=== PATIENT | male | born 1995 | race African-American/Black ===

== ENCOUNTER 2020-08-05 04:12 | Inpatient (IN) | payer OTHER ==
[~2020-08-05] VITALS: Ht 188 cm; Wt 110.7 kg
[2020-08-05 04:17] VITALS: BP 173/115
[2020-08-05 05:00] LABS: ABSOLUTE NEUTROPHILS 4.9 thou/uL (1.4-8.2); BASOPHILS 1.1 % (0.0-2.0); EOSINOPHILS 1.1 % (0.0-3.0); HEMATOCRIT 36.9 % (42.0-52.0); HEMOGLOBIN 12.7 gm/dL (14.0-18.0); LYMPHOCYTES 35.9 % (24.0-44.0); MCH 31.3 pg (26.0-34.0); MCHC 34.3 g/dL (28.0-37.0); MCV 91.3 fL (80.0-100.0); MONOCYTES 5.7 % (1.0-8.0); PLATELET COUNT 410 thou/uL (150-400); POLYS 56.2 % (36.0-66.0); RBC 4.04 mil/uL (4.50-6.00); RDW 15.3 % (10.5-14.5); WBC 8.7 thou/uL (4.0-11.0)
[2020-08-05 05:21] LABS: CREATININE 1.1 mg/dL (0.7-1.3); POTASSIUM 3.2 mmol/L (3.5-5.1)
[2020-08-05 05:23] LABS: ALBUMIN 3.5 g/dL (3.4-5.0); TOTAL BILIRUBIN 3.2 mg/dL (0.2-1.0); TOTAL PROTEIN 7.3 g/dL (6.4-8.2)
[2020-08-05 11:23] VITALS: BP 158/104
[2020-08-05 12:15] VITALS: BP 180/103
[2020-08-05] MEDS ORDERED: VENTOLIN HFA 1818 GM INH (12:34)
[2020-08-05] MEDS ORDERED: PROTONIX40 M2 PO (12:34)
[2020-08-05] MEDS ORDERED: OXYCODONE-APAP1 EAC4 PO (12:35)
--- NOTE | 2020-08-05 13:18 | NUR ---
PT ARRIVED TO UNIT AT 1215. PT A&OX4. PT STATES HIS MOTHER TOOK HIS SHOES HOME, BUT SHE WOULD BE BACK LATER TO VISIT. PT STATES HIS PAIN IS "29/10" SEIZURES PRECAUTIONS IN PLACE, PT REPORTS 'NO SEIZURES EVERY IN MY LIFE'. BP IS ELEVATED, THIS RN CALLED PHARMACY FOR THIAMINE INFUSION. 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 PT STATES MOST OF HIS DRINKING IS DUE TO STRESS, FEELS A PEER-PRESSURE TYPE OF SITUATION AT HOME, STATES HIS MOM DRINKS OFTEN AT HOME. PT WOULD BE INTERESTED IN AN OUTPATIENT PROGRAM FOR ALCOHOL AT DISCHARGE.
[2020-08-05 15:22] VITALS: BP 187/109
[2020-08-05 19:18] VITALS: BP 187/103
--- NOTE | 2020-08-06 00:13 | NUR ---
times two up to the restroom, forgets to use the urinal. complains that the ambien is not effective for sleeping. explained that his alcohol withdrawl is not allowing him to rest properly. plan to maintain use of the benzo (lorazepam) to control agitation and restlessness.
--- NOTE | 2020-08-06 03:40 | NUR ---
resting quietly after taking lorazepam and pain alleviating medication. his pain level is holding at around a 7/10. he will not stay in bed to use the urinal. he gets out of bed with alarm set and will not call first. reexplained the need for safety and his potential for siezure, given his ETOH withdrawl state. careplan reviewed.
[2020-08-06 03:58] VITALS: BP 167/110
[2020-08-06 05:43] LABS: CALCIUM 9.2 mg/dL (8.5-10.1); CREATININE 0.7 mg/dL (0.7-1.3)
[2020-08-06 05:48] LABS: POTASSIUM 4.1 mmol/L (3.5-5.1)
[2020-08-06 07:34] VITALS: BP 161/104
--- NOTE | 2020-08-06 11:26 | NUR ---
RD consult for diet instruction. Pt newly admitted with pancreatitis, etoh/substance abuse. Being held npo for now, lipase 2050. Psych consulted for anxiety/etoh. On vitamin, thiamine, ivf. Will follow up again on Wednesday 08/09 to see if diet advanced, and complete nutrition eval with education if appropriate.
--- NOTE | 2020-08-06 13:39 | NUR ---
ASSESSMENT: CM REVIEWED CHART AND MET WITH THE PATIENT AT THE BEDSIDE. PT IS ALERT AND ORIENTED X4. PT WAS ADMITTED DUE TO PANREATITIS AND HX OF ALCOHOL ABUSE. PT REPORTS THAT HE LIVES IN A HOUSE WITH HIS MOTHER AND GRANDMOTHER. PT REPORTS BEING FULLY INDEPENDENT WITH ADLS AND AMBULATION. CM MET WITH PATIENT AND DISCUSSED ROLES. CM OFFERED PATIENT RESOURCES ON ALCOHOL ABUSE AND PROVIDED HIM WITH A LIST OF AA MEETINGS IN THE AREA, [facility] OUTPATIENT PROGRAM, AND [employer]. PT REPORTS HIS PCP IS THROUGH [facility]. CM DISCUSSED ROLE. PT DOES NOT ANTICIPATE HAVING ANY FURTHER NEEDS FROM CM. PT REMAINS ON IV FLUIDS AND ALCOHOL WITHDRAWL PROTOCOL.
[2020-08-06 16:04] VITALS: BP 147/94
--- NOTE | 2020-08-06 18:42 | NUR ---
PT NOW ON Q8H CIWA SCALE AFTER SCORING LOW FOR 3 CONSECUTIVE ASSESSMENTS. PT STANDBY ASSIST WHILE AMBULATING, NO CONCERNS AT THIS TIME. LABS ORDERD FOR AM DRAW.
[2020-08-06 20:21] VITALS: BP 116/95
[2020-08-06 20:22] VITALS: BP 116/95
--- NOTE | 2020-08-07 03:01 | NUR ---
PT IS A/O X4 AND IS UP AD CASEY IN ROOM. ROOM AIR. SR ON THE MONITOR. VSS. AFEBRILE. C/O ABDOMINAL PAIN. PRN PAIN MEDICATION GIVEN DIRECTED. CALL LIGHT IS WITHIN REACH
[2020-08-07 05:37] VITALS: BP 148/98
--- NOTE | 2020-08-07 18:28 | NUR ---
ASSUMED PT CARE A DAY SHIFT CHANGE. PT WAS VERY TIRED AT BEGINNING OF SHIFT, WITH NO COMPLAINTS. US PERFORMED WITHOUT ISSUE. AFTER DR CONLEY VISITED WITH PT, PT BECAME VERY AGITATED AND UPSET, STATING HE FELT SHE WASN'T VERY COMPASSIONATE ABOUT HIS SITUATION. THIS RN PROVIDED CALM ENVIRONMENT FOR PT TO VENT HIS FRUSTRATIONS. PT STATED "I AM JUST GOING TO LEAVE" THIS RN INFORMED PT HE HAS PATIENT RIGHTS, BUT THE HOSPITAL STAFF INCLUDING PHYSICIAN, IS OPERATING TO HELP HIM TO REDUCE PAIN AND HAVE IMPROVED LABS. PT VERBALIZED HE NEEDS TO HAVE DOCTOR NOTE FOR HIS WORK TO SAY HE HAS BEEN IN THE HOSPITAL AND IS WAS OK AT THAT TIME TO STAY IN THE HOSPITAL PER DR CONLEY RECOMMENDATION. PT HAD ORIGINAL IV INFILTRATE, FLOOR NURSE UNABLE TO FIND APPROPRIATE ACCESS, IV TEAM CALLED WITH SUCCESSFUL IV PLACED IN CLY[place]. WHEN THIS RN WENT INTO PT ROOM, HE HAD INCREASED AGITAITON, STATING "THERE WERE NEEDLES ALL OVER THE PLACE" THIS RN UNABLE TO FIND NEEDLES OR REMINENTS OF IV START DESPITE COMPLETE BED LINEN CHANGE. THIS RN WIPED DOWN PT BED AND TABLE WITH HOSPITAL PROVIDED CLEANSING WIPES. THIS RN ALSO REPLACED PT CLEARS (HE DID NOT WANT THE ITEMS PROVIDED ON TRAY FROM DIETARY) WITH VARIOUS CLEARS FROM [facility]. THIS RN EXPLAINED PT IS TO TRY CLEARS AND IF HE HAS N/V TO REPORT. PT STATES HE WILL TRY BUT "AM PROBABLY GOING TO LEAVE SOON".
[2020-08-07 19:46] VITALS: BP 155/112
[2020-08-08 04:23] VITALS: BP 173/101
--- NOTE | 2020-08-08 06:20 | NUR ---
PAIN MANAGEMENT WAS POC ALONG WITH IVF GTT. PT REQUESTED ALBUTEROL NEB FROM HOME MEDS RESTARTED. RT GAVE TX AT 0545. PT UP AD CASEY. NO COMPLAINTS OF NAUSEA. HOURLY ROUNDING AND CALL LIGHT WITHIN REACH.
[2020-08-08 07:50] VITALS: BP 173/112
[2020-08-08 10:09] VITALS: BP 173/112
[2020-08-08] MEDS ORDERED: PROTONIX40 M2 PO (10:26)
[2020-08-08] MEDS ORDERED: CLONIDINE HCL0.3 M3 PO (10:27)
[2020-08-08] MEDS ORDERED: OXYBUTYNIN 5 MG5 M2 PO (10:27)
[2020-08-08] MEDS ORDERED: OXYCODONE HCL 55 MG PO (10:32)
[2020-08-08] MEDS ORDERED: ZOFRAN4 MG PO (10:34)
--- NOTE | 2020-08-08 12:03 | NUR ---
PT DISHCARGED AT THIS TIME HOME. HE IS ALERT ORIENTED X4. HE WAS INSTRUCTED ON DIETING AND ALSO ON NEED TO MONITOR ABDOMINAL PAIN.
== END 2020-08-08 12:09 | disposition home or self-care (01) | DRG 439 ==
LOC: ER 04:12 → EROBS 07:57 → 3W 07:57 → 4W 11:38 → 3W 12:18
PROVIDERS: Emergency Medicine; ADMIT Internal Medicine; ATTEND Internal Medicine
DX: K85.20 Alcohol induced acute pancreatitis without necrosis or infection (principal); E87.1 Hypo-osmolality and hyponatremia; E87.2 Acidosis; R65.10 Systemic inflammatory response syndrome (SIRS) of non-infectious origin without acute organ dysfunction; F41.1 Generalized anxiety disorder; R74.01 Elevation of levels of liver transaminase levels; J45.909 Unspecified asthma, uncomplicated
CPT/HCPCS: 10080